=== PATIENT | male | born 1990 | race Caucasian/White ===

== ENCOUNTER 2017-06-20 10:56 | Emergency (ER) | payer OTHER ==
[~2017-06-20] VITALS: Ht 177.8 cm; Wt 78.0 kg
[~2017-06-20 10:56] MED LIST: BETH25 PO; DOXY100T17 PO
[2017-06-20 10:58] VITALS: BP 148/91; PULSE 76; RESP 16; TEMP 97.5; O2SAT 100
--- NOTE | 2017-06-20 11:09 | PD ---
HPI Chief Complaint: Abdominal Pain Time Seen by Provider: 11:08 Travel History International Travel<30 days: No Contact w/Intl Traveler<30days: No Traveled to known affect area: No History of Present Illness HPI 27-year-old male came to the emergency room with history of abdominal cramps that started this morning. Patient says that he had similar symptoms 2 weeks ago with some diarrhea. He had gone to another emergency room where blood work and CAT scan was done. He was diagnosed with colitis and was discharged home on ciprofloxacin, Flagyl and 800 mg Motrin to be taken 3 times a day. Patient says he finished taking all the medications and his symptoms started again this morning. He has an appointment with a GI specialist coming up next Wednesday. But because of the symptoms he came here. No history of nausea vomiting. He says his symptoms get worse when he eats something. He also has been diagnosed with gastroparesis and has an intestinal stimulator/pacemaker. Vital signs were relatively stable. [facility] Past Medical History Narrative Medical list of his past medical, surgical, social and family history is reviewed from the nursing note. Diminished Hearing: No Gastrointestinal Disorders: Yes (GASTROPORESIS) Past Surgical History Abdominal Surgery: Yes (GASTRIC PACEMAKER) Tonsillectomy: Yes Social History Alcohol Use: Yes (OCCASSIONAL) Tobacco Use: No Substance Use: No Allergies-Medications (Allergen,Severity, Reaction): Coded Allergies: Sulfa (Sulfonamide Antibiotics) (Unverified Allergy, Intermediate, Rash, ) Comments list of his allergies reviewed from the nursing note. Reported Meds & Prescriptions Reported Meds & Active Scripts Active Protonix (Pantoprazole Sodium) 20 Mg Tab 20 Mg PO DAILY Reported Bethanechol 25 Mg Tab 25 Mg PO BID Narrative Medication List of his home medications reviewed from the nursing note. Review of Systems Except as stated in HPI: all other systems reviewed are Neg Gastrointestinal: Positive: Abdominal Pain Physical Exam Narrative GENERAL: Awake, alert, anxious, mild distress SKIN: Focused skin assessment warm/dry. HEAD: Atraumatic. Normocephalic. EYES: Pupils equal and round. No scleral icterus. No injection or drainage. ENT: No nasal bleeding or discharge. Mucous membranes pink and moist. NECK: Trachea midline. No JVD. CARDIOVASCULAR: Regular rate and rhythm. No murmur appreciated. RESPIRATORY: No accessory muscle use. Clear to auscultation. Breath sounds equal bilaterally. GASTROINTESTINAL: Abdomen soft, non-tender, nondistended. Hepatic and splenic margins not palpable. Intestinal pacemaker palpated in the left lower quadrant MUSCULOSKELETAL: No obvious deformities. No clubbing. No cyanosis. No edema. NEUROLOGICAL: Awake and alert. No obvious cranial nerve deficits. Motor grossly within normal limits. Normal speech. PSYCHIATRIC: Appropriate mood and affect; insight and judgment normal. Data Data Last Documented VS Orders Orders Urinalysis - C+S If Indicated (06/20/17 11:01) Complete Blood Count With Diff (06/20/17 11:21) Comprehensive Metabolic Panel (06/20/17 11:21) Lactic Acid (06/20/17 11:21) Iv Access Insert/Monitor (06/20/17 11:21) Ecg Monitoring (06/20/17 11:21) Oximetry (06/20/17 11:21) Pantoprazole Inj (Protonix Inj) (06/20/17 11:30) Sodium Chlor 0.9% 1000 Ml Inj (Ns 1000 M (06/20/17 11:21) Sodium Chloride 0.9% Flush (Ns Flush) (06/20/17 11:30) Ed Discharge Order (06/20/17 11:59) Labs Laboratory Tests Test 06/20/17 11:28 White Blood Count 9.5 TH/MM3 Red Blood Count 4.73 MIL/MM3 Hemoglobin 14.0 GM/DL Hematocrit 40.8 % Mean Corpuscular Volume 86.3 FL Mean Corpuscular Hemoglobin 29.7 PG Mean Corpuscular Hemoglobin Concent 34.4 % Red Cell Distribution Width 12.0 % Platelet Count 241 TH/MM3 Mean Platelet Volume 7.7 FL Neutrophils (%) (Auto) 69.5 % Lymphocytes (%) (Auto) 14.0 % Monocytes (%) (Auto) 15.0 % Eosinophils (%) (Auto) 1.2 % Basophils (%) (Auto) 0.3 % Neutrophils # (Auto) 6.7 TH/MM3 Lymphocytes # (Auto) 1.3 TH/MM3 Monocytes # (Auto) 1.4 TH/MM3 Eosinophils # (Auto) 0.1 TH/MM3 Basophils # (Auto) 0.0 TH/MM3 CBC Comment DIFF FINAL Differential Comment Urine Collection Type CLEAN CATCH Urine Color STRAW Urine Turbidity CLEAR Urine pH 6.5 Urine Specific [place] 1.002 Urine Protein NEG mg/dL Urine Glucose (UA) NEG mg/dL Urine Ketones NEG mg/dL Urine Occult Blood NEG Urine Nitrite NEG Urine Bilirubin NEG Urine Leukocyte Esterase NEG Urine Squamous Epithelial Cells 0-5 /hpf Urine Amorphous Sediment FEW Microscopic Urinalysis Comment CULT NOT INDICATED Urine Collection Time 1128 Blood Urea Nitrogen 13 MG/DL Creatinine 1.10 MG/DL Random Glucose 96 MG/DL Total Protein 7.6 GM/DL Albumin 3.9 GM/DL Calcium Level 8.3 MG/DL Alkaline Phosphatase 48 U/L Aspartate Amino Transf (AST/SGOT) 21 U/L Alanine Aminotransferase (ALT/SGPT) 37 U/L Total Bilirubin 0.4 MG/DL Sodium Level 136 MEQ/L Potassium Level 4.2 MEQ/L Chloride Level 104 MEQ/L Carbon Dioxide Level 26.9 MEQ/L Anion Gap 5 MEQ/L Estimat Glomerular Filtration Rate 80 ML/MIN Lactic Acid Level 1.0 mmol/L MDM Medical Decision Making Medical Screen Exam Complete: Yes Emergency Medical Condition: Yes Medical Record Reviewed: Yes Differential Diagnosis Colitis, dehydration, electrolyte Abnormality Narrative Course 11:57 AM the test results are back and within acceptable limits. UA was negative. I've explained to the patient that I do not intend to repeat another CAT scan since one was done 2 weeks ago. At this point he needs to call the GI specialist and see if they can see him sooner. I will discharge him. He needs a colonoscopy urgency. Procedures EKG Prior to Arrival: No Diagnosis Primary Impression: Chronic diarrhea Referrals: Primary Care Physician Additional Instructions: Please contact your GI specialist that he can be seen sooner and get an appointment for colonoscopy urgently. Take clear liquid diet in the meanwhile. Return to the ER if condition worsens or any other new concerns. Take the medication as per the prescription direction. Med/Other Pt SpecificInfo: Prescription(s) given Scripts Pantoprazole (Protonix) 20 Mg Tab 20 MG PO DAILY for Reflux, #30 TAB 0 Refills Prov: Siri Barcenas MD 06/20/17 Disposition: 01 DISCHARGE HOME Condition: Stable Siri Barcenas MD Jun 20, 2017 11:09
[2017-06-20] MEDS ORDERED: BETH25TA2 PO (11:11)
[2017-06-20] MEDS ORDERED: SODIUM CHLOR 0.9% 1000 ML INJ 1,000 ML IV SCH (11:21)
[2017-06-20] MEDS ORDERED: PANTOPRAZOLE SODIUM 40 MG VIAL IVP ONE (11:30)
[2017-06-20] MEDS ORDERED: SODIUM CHLORIDE 0.9% FLUSH 10 ML FLUSH IV FLUSH PRN (11:30)
[2017-06-20 11:32] VITALS: O2SAT 98
[2017-06-20 11:39] LABS: AUTOMATED NEUTROPHIL # 6.7 TH/MM3 (1.8-7.7); BASOPHIL % 0.3 % (0.0-2.0); EOSINOPHIL # 0.1 TH/MM3 (0-0.4); EOSINOPHIL % 1.2 % (0.0-4.0); HEMATOCRIT 40.8 % (39.0-51.0); LYMPHOCYTE # 1.3 TH/MM3 (1.0-4.8); MEAN CELL VOLUME 86.3 FL (80.0-100.0); MEAN CORPUSCULAR HEMOGLOBIN 29.7 PG (27.0-34.0); MEAN CORPUSCULAR HGB CONC 34.4 % (32.0-36.0); MEAN PLATELET VOLUME 7.7 FL (7.0-11.0); MONOCYTE # 1.4 TH/MM3 (0-0.9); NEUT % 69.5 % (16.0-70.0); PLATELET COUNT 241 TH/MM3 (150-450); RED BLOOD COUNT 4.73 MIL/MM3 (4.50-5.90); WHITE BLOOD COUNT 9.5 TH/MM3 (4.0-11.0)
[2017-06-20 11:40] LABS: BILIRUBIN, URINE NEG (NEG); BLOOD, URINE NEG (NEG); GLUCOSE,URINE NEG (NEG); KETONE, URINE NEG (NEG); NITRITE,URINE NEG (NEG); PH, URINE 6.5 (5.0-8.5); URINE LEUKOCYTE ESTERASE NEG (NEG)
[2017-06-20 11:45] LABS: CHLORIDE 104 MEQ/L (98-107); SODIUM (NA) 136 MEQ/L (136-145)
[2017-06-20 11:48] LABS: ALBUMIN 3.9 GM/DL (3.4-5.0); BICARBONATE 26.9 MEQ/L (21.0-32.0); BLOOD UREA NITROGEN 13 MG/DL (7-18); CALCIUM 8.3 MG/DL (8.5-10.1); GLUCOSE,RANDOM 96 MG/DL (74-106)
[2017-06-20 11:51] LABS: ALT (GPT) 37 U/L (12-78); AST (GOT) 21 U/L (15-37); GLOMERULAR FILTRATION RATE 80 ML/MIN (>89); URINE COLOR STRAW (YELLW/STRAW)
[2017-06-20 11:52] LABS: AMORPHOUS SEDIMENT, URINE FEW; SQUAMOUS EPITHELIAL CELL URINE 0-5 /hpf (0-5)
[2017-06-20 11:53] LABS: TOTAL BILIRUBIN ADULT 0.4 MG/DL (0.2-1.0); TOTAL PROTEIN 7.6 GM/DL (6.4-8.2)
[2017-06-20 11:54] LABS: ALKALINE PHOSPHATASE 48 U/L (45-117)
[2017-06-20] MEDS ORDERED: PANT20 PO (11:59)
[2017-06-20 12:30] VITALS: BP 130/79
== END 2017-06-20 12:32 | disposition home or self-care (01) ==
LOC: PHED 10:56
DX: R19.7 Diarrhea, unspecified (principal); R10.9 Unspecified abdominal pain; Z87.19 Personal history of other diseases of the digestive system; Z88.2 Allergy status to sulfonamides; Z79.899 Other long term (current) drug therapy
CPT/HCPCS: 80053; 81001; 83605; 85025; 96361; 96374; 99284; C9113; J7030